=== PATIENT | male | born 1990 | race Caucasian/White ===

== ENCOUNTER 2024-08-25 06:48 | Day surgery (SDC) | payer OTHER ==
[~2024-08-25] VITALS: Ht 190.5 cm; Wt 93.0 kg
[2024-08-25] VITALS (194 sets, daily range): BP systolic 83–124; BP diastolic 39–83
--- NOTE | 2024-08-25 07:00 | NUR ---
Arrival & Pre-treatment Patient arrived to the ANR suite, identification and demographics confirmed. Patient to room 8, AAO, ambulatory, vitals obtained, ID/allergy/fall bands placed, changed into hospital gown, MARITA hose, and non-slip socks. Procedure and timeline explained for treatment and discharge. All questions answered and the patient presents no concerns at this time.
[2024-08-25] MEDS ORDERED: ALBUTEROL SULFATE 2.5 MG VIAL IN PRN (07:30)
[2024-08-25] MEDS ORDERED: CYANOCOBALAMIN 500 MCG/TAB ( B12) PO PRN (07:30)
[2024-08-25] MEDS ORDERED: diazePAM 5 MG/TAB PO PRN ×2 (07:30→08:30)
[2024-08-25] MEDS ORDERED: SCOPOLAMINE 1.5 MG DIS TD PRN (07:30)
[2024-08-25] MEDS ORDERED: LACTATED RINGER'S 1,000 ML IV PRN ×3 (07:30→19:00)
[2024-08-25] MEDS ORDERED: cloNIDine HCL 0.1 MG/TAB PO PRN (07:30)
[2024-08-25] MEDS ORDERED: PANTOPRAZOLE SODIUM Sesquihydr 40 MG/TAB PO PRN (07:30)
[2024-08-25] MEDS ORDERED: FAMOTIDINE 20 MG/TAB PO PRN (07:30)
--- NOTE | 2024-08-25 07:40 | NUR ---
Dr. Nichols telephoned with patient intake information including usage, dose, last dose/time taken and initial vital signs. Patient history and allergies reviewed with MD. Orders received for 10mg PO Valium and 0.2 mg PO Clonidine now. Will reassess per protocol in 1.5 hours and update MD with assessment and vitals. Patient medicated per MD orders. In addition to Clonidine and Valium, patient received 1000 mcg B12 PO, 20 mg Pepcid PO, and Scopolamine TD patch. Medication indication and education provided prior to administration.
--- NOTE | 2024-08-25 07:45 | NUR ---
SN REVIEWED PERSONAL ITEMS WITH PATIENT. PATIENTS MOTHER TOOK WALLET FOR SAFE KEEPING. PATIENT RETAINED HIS CELLPHONE AND VAPE . BOTH PLACED IN ANR LOCKER RED1. PATIENT HAD NO CONTRABAND .
[2024-08-25] MEDS ORDERED: ASCORBIC ACID 4,000 MG in SODIUM CHLORIDE 0.9% 1,000 ML IV SCH (08:00)
--- NOTE | 2024-08-25 09:45 | NUR ---
Patients vital signs within pre-treatment parameters for 1.5 hour recheck. No indication for additional Valium or Clonidine as patient is resting comfortably and vital signs are within range.
[2024-08-25] MEDS ORDERED: PROPOFOL 100 ML IV PRN (10:00)
[2024-08-25] MEDS ORDERED: MAGNESIUM SULFATE HEPTAHYDRATE 100 ML IV PRN (10:00)
[2024-08-25] MEDS ORDERED: ONDANSETRON HCl 4 MG/2 ML SDV IV PRN ×3 (10:00→19:00)
[2024-08-25] MEDS ORDERED: LIDOCAINE HCL 1% (10MG/ML) 100 MG/10 ML MDV VT PRN ×2 (10:00)
[2024-08-25] MEDS ORDERED: LIDOCAINE HCL 1% (10MG/ML) 100 MG/10 ML MDV IV PRN (10:00)
[2024-08-25] MEDS ORDERED: MIDAZOLAM HCL 2 MG/2 ML VIAL IV PRN (10:00)
[2024-08-25] MEDS ORDERED: OCTREOTIDE ACETATE 100 MCG/VIAL SDV SC PRN (10:00)
[2024-08-25] MEDS ORDERED: STERILE WATER FOR IRRIGATION 1,000 ML BTL IR PRN (10:00)
[2024-08-25] MEDS ORDERED: NALTREXONE HCL 50 MG/TAB VT PRN (10:00)
[2024-08-25] MEDS ORDERED: diazePAM 5 MG/TAB VT PRN (10:00)
[2024-08-25] MEDS ORDERED: THIAMINE HCL 100 MG/ML 2ML VIAL IV PRN (10:00)
[2024-08-25] MEDS ORDERED: PROPOFOL 10 MG/ML 100ML VIAL IV PRN (10:00)
[2024-08-25] MEDS ORDERED: cloNIDine HCL 0.1 MG/TAB VT PRN (10:00)
[2024-08-25] MEDS ORDERED: DiphenhydrAMINE HCL 50 MG/ML SDV IV PRN (10:00)
[2024-08-25] MEDS ORDERED: cloNIDine HYDROCHLORIDE 100 MCG/ML 10 ML INJ IV PRN (10:00)
[2024-08-25] MEDS ORDERED: ROCURONIUM BROMIDE 10 MG/ML 5ML VIAL IV PRN (10:00)
[2024-08-25] MEDS ORDERED: SUCCINYLCHOLINE CHLORIDE 20 MG/ML 10ML VIAL IV PRN (10:00)
[2024-08-25] MEDS ORDERED: PHENYLEPHRINE HCL 10 MG/ML VIAL ONE (10:28)
--- NOTE | 2024-08-25 12:30 | NUR ---
MD at bedside with patient discussing treatment and answering any questions or concerns patient might have. CONSENT FOR CENTRAL LINE ON THE CHART. DR. FRAGA PLACING LINE AT THIS TIME.
--- NOTE | 2024-08-25 12:32 | NUR ---
Induction Note Patient to ANR procedure room. Time out performed at 1232. Patient placed on monitors, Sanaz hugger, bilateral wrist restraints applied for ET tube protection. Versed 5mg given IV push at 1320. Lidocaine 100mg given at 1321 IV push followed by Rocoronium 10mg at 1322 IV push and held for 90 seconds. Propofol bolus of mg120 given at 1324 IV push. Succinylcholine 80mg given IV push at 1325. Smooth intubation with 7.5 ETT. Positive CO2. Positive Auscultation for air exchange. Patient placed on ventilator for spontaneous ventilation. Placed on Propofol IV drip at 1326. OG inserted. Positive air on auscultation. Positive gastric content. Stomach washed at this time.
--- NOTE | 2024-08-25 13:45 | NUR ---
OG close note Stomach washed at this time. Naltrexone 50 mg with Clonidine 0.0 mg via OG tube. OG will be clamped for 45 minutes.
[2024-08-25 14:00] LABS: BASO% 0.8 % (0-3); EOS% 0.9 % (0-8); HEMATOCRIT 35.6 % (39.0-50.0); HEMOGLOBIN 12.1 g/dl (14.0-18.0); LYMPH% 38.9 % (15-41); MEAN CELL VOLUME 89.2 fL CALC (80.0-100.0); MEAN CORPUSCULAR HGB 30.3 pG CALC (26.0-32.0); MONO% 6.3 % (2-13); NEUT# 3.36 thou/uL (1.82-7.42); NEUT% 53.1 % (42-76); RED BLOOD COUNT 3.99 mill/uL (4.70-6.10)
[2024-08-25 14:24] LABS: ALBUMIN 3.6 g/dL (3.2-5.0); BILIRUBIN, TOTAL 0.5 mg/dL (0.2-1.3); CREATININE 0.7 mg/dL (0.7-1.3); POTASSIUM 4.2 mmol/l (3.5-5.1); TOTAL PROTEIN 6.6 g/dL (6.3-8.2)
--- NOTE | 2024-08-25 14:30 | NUR ---
OG open note OG open at this time. Gastric content draining into drainage bag. OG to drain for 45 minutes. Propofol will be titrated down based on patient.
[2024-08-25] MEDS ORDERED: POTASSIUM CHLORIDE 20 MEQ/100 ML BAG IV PRN (14:55)
--- NOTE | 2024-08-25 15:15 | NUR ---
OG close note Stomach washed at this time. Naltrexone 50 mg with Clonidine 0.2 mg via OG tube. OG will be clamped for 45 minutes.
[2024-08-25] MEDS ORDERED: CLONIDINE0.1 MG PO (15:17)
[2024-08-25] MEDS ORDERED: NALTREXONE50 MG PO (15:17)
[2024-08-25] MEDS ORDERED: KLONOPIN2 MG PO (15:17)
--- NOTE | 2024-08-25 16:45 | NUR ---
OG close note Stomach washed at this time. Naltrexone 50 mg with Clonidine 0.1 mg via OG tube. OG will be clamped for 45 minutes.
[2024-08-25] MEDS ORDERED: PROMETHAZINE HCL 12.5 MG in SODIUM CHLORIDE 0.9% 50 ML IV PRN (19:00)
[2024-08-25] MEDS ORDERED: ACETAMINOPHEN 500 MG TAB PO PRN (19:00)
[2024-08-25] MEDS ORDERED: HALOPERIDOL LACTATE 5 MG/ML SDV IV PRN (19:00)
[2024-08-25] MEDS ORDERED: KETOROLAC TROMETHAMINE 30 MG/ML SDV IV PRN (19:00)
[2024-08-25] MEDS ORDERED: LORazepam 2 MG/ML IV PRN ×2 (19:00)
[2024-08-25] MEDS ORDERED: ACETAMINOPHEN 1,000 MG/100 ML VIAL IV PRN (19:00)
[2024-08-25] MEDS ORDERED: PROMETHAZINE HCL 25 MG in SODIUM CHLORIDE 0.9% 50 ML IV PRN (19:00)
--- NOTE | 2024-08-25 19:05 | NUR ---
Extubation note Closing medications given Benadryl 50mg IV push, Decadron 10mg IV push,Magnesium 4 grams IV, Zofran 8mg IV push, Octreotide 100mcg SC. Stomach washed out prior to extubation. Suctioned gastric content. OG removed. Patient extubated. Propofol Discontinued. Wrist restraints removed. Sanaz hugger Removed. See ANR Moderate sedate recovery record for further notes and assessment.
--- NOTE | 2024-08-25 19:20 | NUR ---
TRANSER NOTE Patient transferred to medical-surgical unit. Report given to receiving nurse at bedside. Treatment, medications, I/O, IV access reviewed with RN. All questions answered. IVF to continue at 100 ml/hr, NC @ 2L, no adventitious breath sounds. Safety precautions in place, bed locked and in lowest position, call light in reach. PATIENTS MOTHER CALLED WITH UPDATE. QUESTIONS ASKED AND ANSWERED.
[2024-08-25] MEDS ORDERED: PATIENT' OWN MED CONTROLLED 1 EA DOSE IV PRN (21:00)
[2024-08-25] MEDS ORDERED: clonazePAM 1 MG/TAB PO PRN (23:00)
[2024-08-25] MEDS ORDERED: cloNIDine HCL 0.1 MG/TAB PO SCH (23:00)
--- NOTE | 2024-08-26 | NUR ---
PT RECEIVED SCHEDULED MEDS PER EMAR AND TOLERATED WELL. NAUSEA MEDICATION ALSO ADMINSITERED FOR C/O NAUSEA THAT HAS SINCE SUBSIDED. PT LAYING IN BED SEMI FOWELRS. A/OX3, RM AIR, STAFF HAS BEEN ABLE TO ASSIST PT WITH WALKING TO BATHROOM WITH STEADY GAIT. VOIDED W/O DIFFICULTY. VSS. NO S/S OF DISTRESS. BED ALARM ON AND SAFETY PRECAUTIONS IN PLACE.
[2024-08-26 03:53] VITALS: BP 113/69
[2024-08-26] MEDS ORDERED: clonazePAM 1 MG/TAB PO PRN ×2 (04:00→08:00)
[2024-08-26] MEDS ORDERED: NALTREXONE HCL 50 MG/TAB PO SCH ×2 (04:00→11:00)
[2024-08-26] MEDS ORDERED: cloNIDine HCL 0.1 MG/TAB PO PRN (04:00)
--- NOTE | 2024-08-26 04:45 | NUR ---
PT RECEIVED SCHEDULED MEDS PER EMAR AND TOLERATED WELL. DENIES ANY N/V/P. LABS DRAWN FORM CENTRAL LINE PER PROTOCOL. IVF RUNNING PER EMAR. VSS. NO S/S OF DISTRESS. PT PRESENTS A/OX3. BED ALARM ON AND SAFETY PRECAUTIONS IN PLACE.
[2024-08-26 05:55] LABS: BASO% 0.1 % (0-3); HEMOGLOBIN 12.9 g/dl (14.0-18.0); IMMATURE GRANULOCYTES 0.1 % (0.0-5.0); LYMPH% 8.1 % (15-41); MEAN CELL VOLUME 87.1 fL CALC (80.0-100.0); MEAN CORPUSCULAR HGB 30.4 pG CALC (26.0-32.0); MEAN CORPUSCULAR HGB CONC 34.9 g/dL CAL (32.0-36.0); MONO% 0.5 % (2-13); NEUT# 10.57 thou/uL (1.82-7.42); NEUT% 91.2 % (42-76); RED BLOOD COUNT 4.25 mill/uL (4.70-6.10); RED CELL DISTRI WIDTH 12.7 % (11.5-15.5)
[2024-08-26 06:01] LABS: ALBUMIN 3.9 g/dL (3.2-5.0); BILIRUBIN, TOTAL 0.7 mg/dL (0.2-1.3); CREATININE 0.7 mg/dL (0.7-1.3); MAGNESIUM 2.1 mg/dL (1.6-2.3)
[2024-08-26] MEDS ORDERED: PANTOPRAZOLE SODIUM Sesquihydr 40 MG/TAB PO SCH (08:00)
[2024-08-26] MEDS ORDERED: ACETAMINOPHEN 325 MG/TAB PO SCH (08:00)
[2024-08-26] MEDS ORDERED: cloNIDine HCL 0.1 MG/TAB PO SCH ×2 (08:00→11:00)
--- NOTE | 2024-08-26 08:57 | NUR ---
PATIENT A/O X2; ROOM AIR; BREATHING UNLABORED AND EVEN; DENIED ANY PAIN; DENIED ANY N/D/V AT THIS TIME; PATIENT DOES HAVE SOME GOOSE BUMPS AND MOISTURE AROUND HIS FACE AND NECK, NOTFIED PROVIDER AWAITING NEW ORDERS; TOLERATED HIS MEDICATION AND SOME BITES OF BREAKFAST; CENTRAL LINE WORKNG WITH NO ISSUES, RUNNING WITH LR @100; PERSONAL ITEM IN ANR LOCKER; LABS WAS REPORTED TO PROVIDER; CALL LIGHT WITHIN REACH; BED IN LOWEST POSTION;SAFTEY MEASURES IN PLACE; BED ALARM ACTIVATED
[2024-08-26] MEDS ORDERED: Cholecalciferol 2,000 UNIT/TAB PO PRN (09:00)
[2024-08-26] MEDS ORDERED: MAGNESIUM OXIDE 400 MG/TAB PO PRN (09:00)
[2024-08-26] MEDS ORDERED: ACETAMINOPHEN 500 MG TAB PO PRN (09:00)
[2024-08-26 10:57] VITALS: BP 105/58
--- NOTE | 2024-08-26 11:00 | NUR ---
patient tolerated naltrexone 25 and clondine 0.[address] order [address] Nichols
--- NOTE | 2024-08-26 12:54 | NUR ---
patient resting in bed; asleep, room air; breathing unlabored; no s.s of distress, encouraged patient to try to eat; central line clean and intact running with LR @100; no complaints at this time, imformed patient we go take shower and walk soon; call light within reach; bed in lowest postion; saftey measures in place
--- NOTE | 2024-08-26 13:54 | NUR ---
patient currently in the shower at this time, central line saline locked
--- NOTE | 2024-08-26 15:32 | NUR ---
PATIENT TOLERATED DISCHARGE MEDICATIONS WITH NO ISSUES
--- NOTE | 2024-08-26 15:52 | NUR ---
CENTRAL LINE REMOVED FRO RIGHT GROIN BUT JOSEPH RODRIGUEZ
== END 2024-08-26 16:39 | disposition home or self-care (01) | DRG 897 ==
LOC: MS2 06:48 → ANR 06:48 → MS2 16:06 → ANR 08-26 16:39
PROVIDERS: ATTEND Anesthesiology
DX: F11.20 Opioid dependence, uncomplicated (principal)
CPT/HCPCS: J1100; J1200; J2354; J2405; J2550; J2704; J3475; J3480